=== PATIENT | male | born 1970 | race Caucasian/White ===

== ENCOUNTER → 2023-02-07 | Outpatient (CLI) | payer BC, SELFPAY ==
[2023-02-07 13:54] LABS: Thyroid Stim Hormone (TSH) 1.51 uIU/mL (0.358-3.74)
== END | disposition home or self-care (01) ==
LOC: LAB 12:16
PROVIDERS: Referring Provider Internal Medicine Cardiovascular Disease; Visit Provider Internal Medicine Cardiovascular Disease
DX: R00.2 Palpitations (principal)
CPT/HCPCS: 36415; 84443

== ENCOUNTER → 2023-02-22 | Outpatient (CLI) | payer BC, SELFPAY ==
--- NOTE | 2023-02-22 10:49 | ECHOD_ITS ---
Reason For Study: Palpitations Procedure This was a 2D Doppler, Color Flow transthoracic echocardiogram. Exam performed in department. Left Ventricle Mild concentric left ventricular hypertrophy. Normal LV size. The left ventricular ejection fraction is 60 %. Diastolic function is indeterminate. Right Ventricle Normal right ventricle. Atria The left and right atria are normal. Mitral Valve Mild (1+) mitral valve insufficiency. Tricuspid Valve Trivial tricuspid valve insufficiency. Unable to estimate RV systolic pressure due to insufficient tricuspid regurgitant envelope. Aortic Valve Trisinus/trileaflet aortic valve. Pulmonic Valve The pulmonic valve is not well visualized. Mild (1+) pulmonic valve insufficiency. Great Vessels The aortic root is not well visualized. Pericardium/Pleural No pericardial effusion. MMode/2D Measurements & Calculations LVIDd: 4.6 cm IVSd: 1.3 cm LA dimension: 3.2 cm LVIDs: 3.1 cm LVPWd: 0.98 cm RVDd: 4.3 cm FS: 32.9 % LAV(MOD-bp): 64.4 ml LVAd ap4: 32.8 cm2 SV(MOD-sp4): 54.2 ml LAV(MOD-bp) Indexed: 28.8 ml/m2 LVLd ap4: 8.9 cm LAV(MOD-sp2): 67.8 ml EDV(MOD-sp4): 100.3 ml LAV(MOD-sp4): 48.1 ml EDV(sp4-el): 102.1 ml LVAs ap4: 20.5 cm2 LVLs ap4: 7.8 cm ESV(MOD-sp4): 46.2 ml ESV(sp4-el): 45.7 ml EF(MOD-sp4): 54.0 % EF(sp4-el): 55.2 % SV(sp4-el): 56.3 ml LA A4 area: 16.8 cm2 RA A4 area: 18.8 cm2 TAPSE: 2.3 cm Time Measurements MV dec time: 0.28 sec Doppler Measurements & Calculations MV E max benitez: 62.3 cm/sec Lat Peak E' Benitez: 13.3 cm/sec Med Peak E' Benitez: 7.9 cm/sec MV A max benitez: 53.3 cm/sec E/E' lat: 4.7 E/E' med: 7.9 MV E/A: 1.2 MV V2 max: 86.7 cm/sec MV P1/2t max benitez: 85.7 cm/sec Ao V2 max: 119.0 cm/sec MV max P.0 mmHg MV P1/2t: 100.9 msec Ao max P.7 mmHg MV V2 mean: 39.1 cm/sec MV dec slope: 248.8 cm/sec2 Ao V2 mean: 85.2 cm/sec MV mean P.77 mmHg Ao mean P.2 mmHg MV V2 VTI: 30.1 cm MVA(P1/2t): 2.2 cm2 Ao V2 VTI: 28.8 cm AV (velocity ratio): 0.85 LV V1 max: 95.4 cm/sec MR max benitez: 525.7 cm/sec PA V2 max: 114.2 cm/sec LV V1 max P.6 mmHg MR max P.5 mmHg LV V1 mean P.2 mmHg LV V1 mean: 71.4 cm/sec LV V1 VTI: 24.4 cm PI dec slope: 127.1 cm/sec2 ECHO/Echo Complete Interpretation Summary Mild concentric left ventricular hypertrophy. The left ventricular ejection fraction is 60 %. Diastolic function is indeterminate. Mild (1+) pulmonic valve insufficiency. Ordering Physician: Vannesa Tabor Referring Physician: Vannesa Tabor Performed By: Jonathan Cavazos RCS
== END | disposition home or self-care (01) ==
PROVIDERS: Referring Provider Internal Medicine Cardiovascular Disease; Visit Provider Internal Medicine Cardiovascular Disease
DX: R00.2 Palpitations (principal); I10 Essential (primary) hypertension; I25.10 Atherosclerotic heart disease of native coronary artery without angina pectoris
CPT/HCPCS: 93306